=== PATIENT | male | born 1985 | race Caucasian/White ===

== ENCOUNTER 2017-01-04 15:10 | Emergency (ER) | payer OTHER ==
[~2017-01-04] VITALS: Ht 172.7 cm; Wt 71.7 kg
[2017-01-04 16:09] LABS: MCH 30.5 PG (29.0-34.0); MCHC 35.1 G/DL (30.0-36.0); MCV 86.9 FL (86-99); MEAN PLAT.VOLUME 9.8 uM^3 (9.0-12.4); PLATELET COUNT 243 K/uL (156-360); RBC DIS.WIDTH-CV 12.3 % (11.8-14.6); RBC DIS.WIDTH-SD 39.2 % (39-53); RED BLOOD COUNT 5.41 M/uL (4.00-5.50); WHITE BLOOD COUNT 18.6 K/uL (4.1-10.2)
[2017-01-04 16:20] LABS: CHLORIDE 99 mEq/L (99-109); POTASSIUM 4.2 mEq/L (3.7-5.4); SODIUM 138 mEq/L (136-147)
[2017-01-04 16:21] LABS: GLUCOSE 217 mg/dL (70-99)
[2017-01-04 16:23] LABS: ANION GAP 13 MEQ/L (2-14)
[2017-01-04 16:25] LABS: GFR ESTIMATE (CALCULATED) > 59 mL/min/
[2017-01-04 16:26] LABS: UREA NITROGEN (BUN) 18 mg/dL (9-23)
[2017-01-04 18:09] VITALS: BP 120/86
== END 2017-01-04 18:10 | disposition home or self-care (01) ==
LOC: EME 15:10
PROVIDERS: Emergency Medicine
DX: F11.10 Opioid abuse, uncomplicated (principal); T50.7X6A Underdosing of analeptics and opioid receptor antagonists, initial encounter; Z91.128 Patient's intentional underdosing of medication regimen for other reason; F17.200 Nicotine dependence, unspecified, uncomplicated
CPT/HCPCS: 71010; 80048; 85027; 93005; 99281; 99285; J2310; J7030

== ENCOUNTER 2017-08-12 18:55 | Emergency (ER) | payer OTHER ==
[~2017-08-12] VITALS: Ht 172.7 cm; Wt 69.9 kg
[2017-08-12 19:58] LABS: HEMATOCRIT 45.9 % (38.0-50.0); HEMOGLOBIN 15.9 G/DL (12.5-16.6); MCH 30.1 PG (29.0-34.0); MCHC 34.6 G/DL (30.0-36.0); MCV 86.8 FL (86-99); PLATELET COUNT 269 K/uL (156-360); RBC DIS.WIDTH-CV 11.6 % (11.8-14.6); RED BLOOD COUNT 5.29 M/uL (4.00-5.50); WHITE BLOOD COUNT 13.8 K/uL (4.1-10.2)
[2017-08-12 20:05] LABS: ALBUMIN 4.4 g/dL (3.2-4.8); CHLORIDE 96 mEq/L (99-109); POTASSIUM 3.6 mEq/L (3.7-5.4); SODIUM 136 mEq/L (136-147)
[2017-08-12 20:07] LABS: GLUCOSE 123 mg/dL (70-99); TOTAL PROTEIN 7.6 g/dL (6.4-8.3)
[2017-08-12 20:09] LABS: TOTAL BILIRUBIN 0.4 mg/dL (0.0-1.0)
[2017-08-12 20:10] LABS: SERUM ETHYL ALCOHOL < 10 mg/dL
[2017-08-12 20:11] LABS: ALKALINE PHOSPHATASE 74 IU/L (3-129); CREATININE 0.9 mg/dL (0.6-1.3); GFR ESTIMATE (CALCULATED) > 59 mL/min/ (58.99-99999)
[2017-08-12 20:12] LABS: AST (GOT) 38 IU/L (2-34); UREA NITROGEN (BUN) 14 mg/dL (9-23)
[2017-08-12 20:14] LABS: ALT (GPT) 41 IU/L (3-49)
[2017-08-12 21:45] LABS: APPEARANCE SL.HAZY ((CLEAR)); BILIRUBIN NEGATIVE; BLOOD NEGATIVE; COLOR YELLOW ((YELLOW)); GLUCOSE (STRIP) NEGATIVE; KETONES NEGATIVE; LEUKOCYTES NEGATIVE; NITRITE NEGATIVE; PROTEIN (STRIP) 30; SPECIFIC GRAVITY 1.025 (1.000-1.030); UROBILINOGEN 0.2 MG/DL (0.2-1.0)
[2017-08-12 21:52] LABS: BACTERIA NONE SEEN /HPF; EPITHELIAL CELLS RARE /HPF; MUCUS 1+ /LPF; WHITE BLOOD CELLS 0-5 /HPF (0-5)
[2017-08-12 21:53] LABS: AMPHETAMINE NEGATIVE (500 ng/mL); BARBITURATES NEGATIVE (200 ng/mL); BENZODIAZEPINES PRESUMPTIVE POSITIVE (150 ng/mL); BUPRENORPHINE NEGATIVE (10 ng/mL); COCAINE NEGATIVE (150 ng/mL); METHADONE NEGATIVE (200 ng/mL); METHAMPHETAMINE NEGATIVE (500 ng/mL); OPIATES (MORPHINE) NEGATIVE (100 ng/mL); OXYCODONE NEGATIVE (100 ng/mL); PHENCYCLIDINE NEGATIVE (25 ng/mL); PROPOXYPHENE NEGATIVE (300 ng/mL); THC CANNABINOIDS PRESUMPTIVE POSITIVE (50 ng/mL); TRICYCLIC ANTIDEPRESSANTS NEGATIVE (300 ng/mL)
[2017-08-12] MEDS ORDERED: NARCAN4 MG NS (21:58)
[2017-08-12] MEDS ORDERED: LEVAQUIN750 MG PO (22:06)
[2017-08-12 22:28] LABS: BENZODIAZEPINES, URINE SCREEN POSITIVE (200 ng/mL)
[2017-08-12 22:34] VITALS: BP 133/92
== END 2017-08-12 22:34 | disposition home or self-care (01) ==
LOC: EME 18:55
PROVIDERS: Emergency Medicine
DX: T40.1X1A Poisoning by heroin, accidental (unintentional), initial encounter (principal); T50.991A Poisoning by other drugs, medicaments and biological substances, accidental (unintentional), initial encounter; F19.10 Other psychoactive substance abuse, uncomplicated; J98.4 Other disorders of lung; F17.200 Nicotine dependence, unspecified, uncomplicated
CPT/HCPCS: 71046; 80053; 81003; 84999; 85027; 93005; 99281; 99284; G0480

== ENCOUNTER 2017-11-14 10:52 | Inpatient (IN) | payer OTHER ==
[~2017-11-14] VITALS: Ht 172.7 cm; Wt 67.0 kg
[2017-11-14] VITALS (11 sets, daily range): BP systolic 94–126; BP diastolic 67–85
[~2017-11-14 10:52] MED LIST: LEVAQUIN750 MG PO; NARCAN4 MG NS
[2017-11-14 11:03] LABS: CARBOXY HGB 5.4 % (0-5); PCO2 82 mm Hg (35-45); PO2 472 mm Hg (80-100)
[2017-11-14 11:04] LABS: COMMENTS - BLOOD GASES A+C+; DEVICE AMBU; FI02 100 %; SITE RR; pH < 6.92 (7.35-7.45)
[2017-11-14 11:10] LABS: PLATELET COUNT 288 K/uL (156-360)
[2017-11-14 11:12] LABS: INTER. NORMALIZED RATIO 1.2
[2017-11-14 11:15] LABS: HEMATOCRIT 45.7 % (38.0-50.0); HEMOGLOBIN 14.2 G/DL (12.5-16.6); MCH 31.2 PG (29.0-34.0); MCHC 31.1 G/DL (30.0-36.0); MCV 100.4 FL (86-99); RBC DIS.WIDTH-SD 48.2 % (39-53); RED BLOOD COUNT 4.55 M/uL (4.00-5.50); WHITE BLOOD COUNT 41.2 K/uL (4.1-10.2)
[2017-11-14 11:16] LABS: ALBUMIN 3.8 g/dL (3.2-4.8)
[2017-11-14 11:17] LABS: CHLORIDE 97 mEq/L (99-109); POTASSIUM 3.4 mEq/L (3.7-5.4); SODIUM 139 mEq/L (136-147)
[2017-11-14 11:19] LABS: GLUCOSE 335 mg/dL (70-99); TOTAL PROTEIN 6.7 g/dL (6.4-8.3)
[2017-11-14 11:21] LABS: TOTAL BILIRUBIN 0.9 mg/dL (0.0-1.0)
[2017-11-14 11:22] LABS: ALKALINE PHOSPHATASE 185 IU/L (3-129)
[2017-11-14 11:23] LABS: CREATININE 1.7 mg/dL (0.6-1.3); GFR ESTIMATE (CALCULATED) 50 mL/min/ (58.99-99999)
[2017-11-14 11:24] LABS: AST (GOT) 226 IU/L (2-34); UREA NITROGEN (BUN) 15 mg/dL (9-23)
[2017-11-14 11:25] LABS: APPEARANCE CLEAR ((CLEAR)); BILIRUBIN SMALL; BLOOD NEGATIVE; COLOR AMBER ((YELLOW)); GLUCOSE (STRIP) NEGATIVE; KETONES NEGATIVE; LEUKOCYTES NEGATIVE; NITRITE NEGATIVE; PROTEIN (STRIP) 30; SPECIFIC GRAVITY 1.027 (1.000-1.030); UCUL ADDED? NO
[2017-11-14 11:26] LABS: ACETAMINOPHEN (TYLENOL) < 10 mcg/mL (10-30); CREATINE KINASE 166 IU/L (1-294); TOTAL CK 166 IU/L (1-294)
[2017-11-14 11:27] LABS: ALT (GPT) 1023 IU/L (3-49)
[2017-11-14 11:28] LABS: TROP-I INTERPRETATION NEGATIVE; TROPONIN-I 0.01 ng/mL (0.0-0.30)
[2017-11-14 11:32] LABS: CK-MB 3.9 ng/mL (0.0-4.9); CKMB RELATIVE INDEX 2.3 (0.0-3.9)
[2017-11-14 11:34] LABS: AMPHETAMINE NEGATIVE (500 ng/mL); BARBITURATES NEGATIVE (200 ng/mL); BENZODIAZEPINES NEGATIVE (150 ng/mL); BUPRENORPHINE NEGATIVE (10 ng/mL); COCAINE PRESUMPTIVE POSITIVE (150 ng/mL); METHADONE NEGATIVE (200 ng/mL); METHAMPHETAMINE NEGATIVE (500 ng/mL); OPIATES (MORPHINE) NEGATIVE (100 ng/mL); OXYCODONE NEGATIVE (100 ng/mL); PHENCYCLIDINE NEGATIVE (25 ng/mL); PROPOXYPHENE NEGATIVE (300 ng/mL); THC CANNABINOIDS NEGATIVE (50 ng/mL); TRICYCLIC ANTIDEPRESSANTS NEGATIVE (300 ng/mL)
[2017-11-14 15:41] LABS: BASE EXCESS 6.8 mEq/L (-3 to +3); BICARBONATE 28.9 mEq/L (22-26); CARBOXY HGB 2.3 % (0-5); COMMENTS - BLOOD GASES A+C+; DEVICE VENT; FI02 50 %; METHEMOGLOBIN 1.5 % (0-1.5); PCO2 33 mm Hg (35-45); PO2 58 mm Hg (80-100); SITE RR; pH 7.55 (7.35-7.45)
[2017-11-14 15:42] LABS: MECHANICAL RATE 22 resp/min; MODE ACVC; PEEP 5 CM/H20; TIDAL VOLUME 550 ML; TOTAL RESP RATE 22 resp/min
[2017-11-14 18:08] LABS: INTER. NORMALIZED RATIO 1.2
[2017-11-14 18:26] LABS: TROP-I INTERPRETATION POSITIVE; TROPONIN-I 3.74 ng/mL (0.0-0.30)
[2017-11-14 18:29] LABS: CHLORIDE 103 MEQ/L (99-109); MAGNESIUM 2.3 mg/dl (1.3-2.7); PHOSPHORUS 1.3 mg/dL (2.5-4.9); POTASSIUM 3.3 MEQ/L (3.7-5.4); SODIUM 139 MEQ/L (136-147); UREA NITROGEN (BUN) 17 mg/dL (9-23)
[2017-11-14 18:31] LABS: BASOPHIL (%) 0.5 % (0-1); BASOPHIL COUNT 0.1 K/uL (0-0.1); EOSINOPHIL (%) 0.3 % (0-5); HEMATOCRIT 45.3 % (38.0-50.0); HEMOGLOBIN 15.7 G/DL (12.5-16.6); LYMPHOCYTE (%) 12.7 % (15-42); LYMPHOCYTE COUNT 1.5 K/uL (1.0-2.8); MCH 30.6 PG (29.0-34.0); MCHC 34.7 G/DL (30.0-36.0); MCV 88.3 FL (86-99); MONOCYTE (%) 3.7 % (3-12); MONOCYTE COUNT 0.4 K/uL (0-0.8); NEUTROPHIL (%) 81.8 % (45-76); NEUTROPHIL COUNT 9.4 K/uL (1.8-6.4); PLAT.SUFFICIENCY ADEQUATE; PLATELET COUNT 161 K/uL (156-360); RBC DIS.WIDTH-CV 12.8 % (11.8-14.6); RBC DIS.WIDTH-SD 41.8 % (39-53); RED BLOOD COUNT 5.13 M/uL (4.00-5.50); WHITE BLOOD COUNT 11.5 K/uL (4.1-10.2)
[2017-11-14 18:39] LABS: CREATININE 0.9 MG/DL (0.6-1.3); GFR ESTIMATE (CALCULATED) > 59 mL/min/ (58.99-99999); GLUCOSE 115 mg/dL (70-99)
[2017-11-14 21:53] LABS: BASE EXCESS 4.6 mEq/L (-3 to +3); BICARBONATE 29.2 mEq/L (22-26); CARBOXY HGB 1.8 % (0-5); METHEMOGLOBIN 1.3 % (0-1.5); PCO2 42 mm Hg (35-45); PO2 136 mm Hg (80-100); pH 7.45 (7.35-7.45)
[2017-11-14 21:54] LABS: COMMENTS - BLOOD GASES C+; DEVICE 980 VENT; FI02 40 %; MECHANICAL RATE 15 resp/min; MODE AC; PEEP 5 CM/H20; SITE LR; TIDAL VOLUME 500 ML; TOTAL RESP RATE 15 resp/min
[2017-11-15] VITALS (13 sets, daily range): BP systolic 85–153; BP diastolic 57–120
[2017-11-15 01:01] LABS: HEMATOCRIT 39.8 % (38.0-50.0); HEMOGLOBIN 13.8 G/DL (12.5-16.6); MCH 30.9 PG (29.0-34.0); MCHC 34.7 G/DL (30.0-36.0); MCV 89.2 FL (86-99); PLATELET COUNT 142 K/uL (156-360); RBC DIS.WIDTH-CV 12.9 % (11.8-14.6); RBC DIS.WIDTH-SD 42.4 % (39-53); RED BLOOD COUNT 4.46 M/uL (4.00-5.50); WHITE BLOOD COUNT 8.4 K/uL (4.1-10.2)
[2017-11-15 01:14] LABS: MAGNESIUM 1.6 mg/dL (1.3-2.7)
[2017-11-15 01:19] LABS: CREATININE 0.8 mg/dL (0.6-1.3); GFR ESTIMATE (CALCULATED) > 59 mL/min/ (58.99-99999); PHOSPHORUS 1.1 mg/dL (2.5-4.9)
[2017-11-15 01:20] LABS: UREA NITROGEN (BUN) 15 mg/dL (9-23)
[2017-11-15 01:21] LABS: TROP-I INTERPRETATION POSITIVE
[2017-11-15 01:23] LABS: CHLORIDE 113 mEq/L (99-109); GLUCOSE 82 mg/dL (70-99); INTER. NORMALIZED RATIO 1.5; POTASSIUM 2.6 mEq/L (3.7-5.4); SODIUM 156 mEq/L (136-147)
[2017-11-15 01:26] LABS: TROPONIN-I 3.11 ng/mL (0.0-0.30)
[2017-11-15 02:38] LABS: BASOPHIL (%) 0.2 % (0-1); EOSINOPHIL (%) 0.4 % (0-5); IMMATURE GRANULOCYTE (%) 1.1 % (0.0-0.7); LYMPHOCYTE (%) 18.7 % (15-42); LYMPHOCYTE COUNT 1.6 K/uL (1.0-2.8); MONOCYTE (%) 3.1 % (3-12); MONOCYTE COUNT 0.3 K/uL (0-0.8); NEUTROPHIL (%) 76.5 % (45-76); NEUTROPHIL COUNT 6.4 K/uL (1.8-6.4); PLAT.SUFFICIENCY ADEQUATE
[2017-11-15 03:44] LABS: BASE EXCESS 4.2 mEq/L (-3 to +3); BICARBONATE 28.4 mEq/L (22-26); CARBOXY HGB 1.4 % (0-5); METHEMOGLOBIN 1.5 % (0-1.5); PCO2 40 mm Hg (35-45); pH 7.46 (7.35-7.45)
[2017-11-15 03:45] LABS: COMMENTS - BLOOD GASES C+; DEVICE VENT; FI02 30 %; MECHANICAL RATE 15 resp/min; MODE ACVC; PEEP 5 CM/H20; PO2 103 mm Hg (80-100); SITE LR; TIDAL VOLUME 500 ML; TOTAL RESP RATE 15 resp/min
[2017-11-15 06:52] LABS: INTER. NORMALIZED RATIO 1.2
[2017-11-15 06:55] LABS: HEMATOCRIT 46.4 % (38.0-50.0); MCH 30.8 PG (29.0-34.0); MCHC 34.3 G/DL (30.0-36.0); MCV 89.9 FL (86-99); PLATELET COUNT 151 K/uL (156-360); RBC DIS.WIDTH-CV 12.9 % (11.8-14.6); RED BLOOD COUNT 5.16 M/uL (4.00-5.50); WHITE BLOOD COUNT 9.5 K/uL (4.1-10.2)
[2017-11-15 06:56] LABS: HEMOGLOBIN 15.9 G/DL (12.5-16.6)
[2017-11-15 07:40] LABS: ALBUMIN 3.7 G/DL (3.2-4.8); ALKALINE PHOSPHATASE 136 IU/L (3-129); AST (GOT) 341 IU/L (2-34); CREATININE 0.9 MG/DL (0.6-1.3); GFR ESTIMATE (CALCULATED) > 59 mL/min/ (58.99-99999); GLUCOSE 94 mg/dL (70-99); MAGNESIUM 2.2 mg/dl (1.3-2.7); SODIUM 150 MEQ/L (136-147); TOTAL BILIRUBIN 1.1 MG/DL (0.0-1.0); TOTAL PROTEIN 6.4 G/DL (6.4-8.3); TROPONIN-I 3.34 ng/mL (0.0-0.30); UREA NITROGEN (BUN) 15 mg/dL (9-23)
[2017-11-15 07:41] LABS: TROP-I INTERPRETATION POSITIVE
[2017-11-15 07:43] LABS: CHLORIDE 115 MEQ/L (99-109); POTASSIUM 4.7 MEQ/L (3.7-5.4)
[2017-11-15 07:44] LABS: PHOSPHORUS 1.9 mg/dL (2.5-4.9)
[2017-11-15 08:20] LABS: ABS NEUTROPHIL COUNT 8.7; ATYPICAL LYMPHOCYTE 1.8 %; BAND NEUTROPHILS 2.6 % (0-8.0); EOSINOPHIL ABS CT 0; LYMPHOCYTES 4.4 % (15.0-45.0); MONOCYTES 1.7 % (0-9.0); SEG.NEUTROPHILS 89.5 % (46.0-76.0); SMUDGE CELLS 8.8
[2017-11-15 08:23] LABS: ALT (GPT) 890 IU/L (3-49)
[2017-11-15 11:59] LABS: BASE EXCESS 1.6 mEq/L (-3 to +3); BICARBONATE 25.9 mEq/L (22-26); CARBOXY HGB 1.5 % (0-5); METHEMOGLOBIN 1.4 % (0-1.5); PCO2 39 mm Hg (35-45); pH 7.43 (7.35-7.45)
[2017-11-15 12:00] LABS: PO2 128 mm Hg (80-100); SITE RR
[2017-11-15 12:01] LABS: COMMENTS - BLOOD GASES NAC+; DEVICE VENT; FI02 30 %; MECHANICAL RATE 15 resp/min; MODE A/C; PEEP 5 CM/H20; TIDAL VOLUME 500 ML; TOTAL RESP RATE 15 resp/min
[2017-11-15 12:09] LABS: UR CREATININE CONCENTRATION 25.5 MG/DL
[2017-11-15 12:14] LABS: BASOPHIL (%) 0.2 % (0-1); EOSINOPHIL (%) 0.1 % (0-5); HEMATOCRIT 44.6 % (38.0-50.0); HEMOGLOBIN 15.1 G/DL (12.5-16.6); IMMATURE GRANULOCYTE (%) 0.6 % (0.0-0.7); LYMPHOCYTE (%) 14.3 % (15-42); LYMPHOCYTE COUNT 1.6 K/uL (1.0-2.8); MCH 30.4 PG (29.0-34.0); MCHC 33.9 G/DL (30.0-36.0); MCV 89.7 FL (86-99); MONOCYTE (%) 3.2 % (3-12); MONOCYTE COUNT 0.4 K/uL (0-0.8); NEUTROPHIL (%) 81.6 % (45-76); NEUTROPHIL COUNT 9.3 K/uL (1.8-6.4); PLATELET COUNT 196 K/uL (156-360); RBC DIS.WIDTH-CV 13.3 % (11.8-14.6); RBC DIS.WIDTH-SD 43.5 % (39-53); RED BLOOD COUNT 4.97 M/uL (4.00-5.50); WHITE BLOOD COUNT 11.4 K/uL (4.1-10.2)
[2017-11-15 12:36] LABS: CHLORIDE 122 MEQ/L (99-109); CREATININE 0.9 MG/DL (0.6-1.3); GFR ESTIMATE (CALCULATED) > 59 mL/min/ (58.99-99999); GLUCOSE 123 mg/dL (70-99); MAGNESIUM 2.4 mg/dl (1.3-2.7); POTASSIUM 4.5 MEQ/L (3.7-5.4); SODIUM 151 MEQ/L (136-147); UREA NITROGEN (BUN) 14 mg/dL (9-23)
[2017-11-15 12:39] LABS: PHOSPHORUS 1.2 mg/dL (2.5-4.9)
[2017-11-15 12:59] LABS: INTER. NORMALIZED RATIO 1.2
[2017-11-15 13:07] LABS: TROP-I INTERPRETATION POSITIVE; TROPONIN-I 2.15 ng/mL (0.0-0.30)
[2017-11-15 17:19] LABS: BASE EXCESS -0.3 mEq/L (-3 to +3); BICARBONATE 24.1 mEq/L (22-26); CARBOXY HGB 1.7 % (0-5); METHEMOGLOBIN 1.3 % (0-1.5); PCO2 38 mm Hg (35-45); PO2 83 mm Hg (80-100); pH 7.41 (7.35-7.45)
[2017-11-15 17:20] LABS: DEVICE VENT; FI02 30 %; MECHANICAL RATE 15 resp/min; MODE AC; PEEP 5 CM/H20; TIDAL VOLUME 500 ML; TOTAL RESP RATE 15 resp/min
[2017-11-15 17:48] LABS: BASOPHIL (%) 0.2 % (0-1); EOSINOPHIL (%) 0 % (0-5); HEMATOCRIT 43.1 % (38.0-50.0); HEMOGLOBIN 14.6 G/DL (12.5-16.6); IMMATURE GRANULOCYTE (%) 0.7 % (0.0-0.7); LYMPHOCYTE COUNT 1.4 K/uL (1.0-2.8); MCH 30.6 PG (29.0-34.0); MCHC 33.9 G/DL (30.0-36.0); MCV 90.4 FL (86-99); MONOCYTE (%) 3.2 % (3-12); MONOCYTE COUNT 0.3 K/uL (0-0.8); NEUTROPHIL (%) 79.9 % (45-76); NEUTROPHIL COUNT 6.9 K/uL (1.8-6.4); PLATELET COUNT 144 K/uL (156-360); RBC DIS.WIDTH-CV 13.3 % (11.8-14.6); RBC DIS.WIDTH-SD 44.3 % (39-53); RED BLOOD COUNT 4.77 M/uL (4.00-5.50); WHITE BLOOD COUNT 8.6 K/uL (4.1-10.2)
[2017-11-15 17:59] LABS: INTER. NORMALIZED RATIO 1.2
[2017-11-15 18:11] LABS: CHLORIDE 124 MEQ/L (99-109); CREATININE 0.8 MG/DL (0.6-1.3); GFR ESTIMATE (CALCULATED) > 59 mL/min/ (58.99-99999); GLUCOSE 127 mg/dL (70-99); MAGNESIUM 2.3 mg/dl (1.3-2.7); SODIUM 155 MEQ/L (136-147); UREA NITROGEN (BUN) 15 mg/dL (9-23)
[2017-11-15 18:38] LABS: TROP-I INTERPRETATION POSITIVE; TROPONIN-I 1.41 ng/mL (0.0-0.30)
[2017-11-15 18:40] LABS: PHOSPHORUS 1.8 mg/dL (2.5-4.9)
[2017-11-15 23:26] LABS: BASE EXCESS 2.6 mEq/L (-3 to +3); BICARBONATE 27.2 mEq/L (22-26); CARBOXY HGB 1.6 % (0-5); COMMENTS - BLOOD GASES C; METHEMOGLOBIN 1.4 % (0-1.5); PCO2 41 mm Hg (35-45); PO2 67 mm Hg (80-100); SITE RF ALINE; pH 7.43 (7.35-7.45)
[2017-11-15 23:27] LABS: DEVICE VENT; FI02 30 %; MECHANICAL RATE 15 resp/min; MODE AC; PEEP 5 CM/H20; TIDAL VOLUME 500 ML; TOTAL RESP RATE 15 resp/min
[2017-11-16] VITALS (12 sets, daily range): BP systolic 87–157; BP diastolic 46–113
[2017-11-16 00:54] LABS: BASOPHIL (%) 0.2 % (0-1); EOSINOPHIL (%) 0.2 % (0-5); HEMATOCRIT 42.3 % (38.0-50.0); HEMOGLOBIN 14.4 G/DL (12.5-16.6); IMMATURE GRANULOCYTE (%) 0.3 % (0.0-0.7); LYMPHOCYTE (%) 15.7 % (15-42); LYMPHOCYTE COUNT 1.6 K/uL (1.0-2.8); MONOCYTE (%) 2.9 % (3-12); MONOCYTE COUNT 0.3 K/uL (0-0.8); NEUTROPHIL (%) 80.7 % (45-76); NEUTROPHIL COUNT 8.2 K/uL (1.8-6.4); PLATELET COUNT 132 K/uL (156-360); RBC DIS.WIDTH-CV 13.7 % (11.8-14.6); RBC DIS.WIDTH-SD 45.8 % (39-53); RED BLOOD COUNT 4.65 M/uL (4.00-5.50); WHITE BLOOD COUNT 10.2 K/uL (4.1-10.2)
[2017-11-16 01:00] LABS: INTER. NORMALIZED RATIO 1.3
[2017-11-16 01:13] LABS: CHLORIDE 122 mEq/L (99-109); SODIUM 154 mEq/L (136-147)
[2017-11-16 01:16] LABS: TROP-I INTERPRETATION POSITIVE
[2017-11-16 01:18] LABS: GLUCOSE 84 mg/dL (70-99); MAGNESIUM 1.9 mg/dL (1.3-2.7); TROPONIN-I 1.18 ng/mL (0.0-0.30)
[2017-11-16 01:19] LABS: CREATININE 0.8 mg/dL (0.6-1.3); GFR ESTIMATE (CALCULATED) > 59 mL/min/ (58.99-99999)
[2017-11-16 01:20] LABS: PHOSPHORUS 2.9 mg/dL (2.5-4.9); UREA NITROGEN (BUN) 16 mg/dL (9-23)
[2017-11-16 05:36] LABS: BASE EXCESS 1.2 mEq/L (-3 to +3); CARBOXY HGB 1.6 % (0-5); METHEMOGLOBIN 1.7 % (0-1.5); PCO2 41 mm Hg (35-45); pH 7.41 (7.35-7.45)
[2017-11-16 05:37] LABS: COMMENTS - BLOOD GASES C; DEVICE VENT; FI02 50 %; MECHANICAL RATE 15 resp/min; MODE AC; PEEP 5 CM/H20; PO2 98 mm Hg (80-100); SITE RF ALINE; TIDAL VOLUME 500 ML; TOTAL RESP RATE 15 resp/min
[2017-11-16 06:21] LABS: BASOPHIL (%) 0.3 % (0-1); EOSINOPHIL (%) 0.5 % (0-5); EOSINOPHIL COUNT 0.1 K/uL (0-0.3); HEMATOCRIT 42.7 % (38.0-50.0); HEMOGLOBIN 14.1 G/DL (12.5-16.6); IMMATURE GRANULOCYTE (%) 0.3 % (0.0-0.7); LYMPHOCYTE (%) 14.9 % (15-42); LYMPHOCYTE COUNT 1.8 K/uL (1.0-2.8); MCH 30.5 PG (29.0-34.0); MCV 92.4 FL (86-99); MONOCYTE (%) 3.7 % (3-12); MONOCYTE COUNT 0.4 K/uL (0-0.8); NEUTROPHIL (%) 80.3 % (45-76); NEUTROPHIL COUNT 9.6 K/uL (1.8-6.4); PLATELET COUNT 146 K/uL (156-360); RBC DIS.WIDTH-CV 14.1 % (11.8-14.6); RBC DIS.WIDTH-SD 47.8 % (39-53); RED BLOOD COUNT 4.62 M/uL (4.00-5.50)
[2017-11-16 06:29] LABS: INTER. NORMALIZED RATIO 1.2
[2017-11-16 06:41] LABS: TROP-I INTERPRETATION POSITIVE; TROPONIN-I 1.24 ng/mL (0.0-0.30)
[2017-11-16 07:01] LABS: CHLORIDE 124 MEQ/L (99-109); GFR ESTIMATE (CALCULATED) > 59 mL/min/ (58.99-99999); GLUCOSE 86 mg/dL (70-99); POTASSIUM 3.7 MEQ/L (3.7-5.4); SODIUM 157 MEQ/L (136-147); UREA NITROGEN (BUN) 14 mg/dL (9-23)
[2017-11-16 07:08] LABS: MAGNESIUM 1.9 mg/dl (1.3-2.7); PHOSPHORUS 3.6 mg/dL (2.5-4.9)
[2017-11-16 09:30] LABS: BASE EXCESS -1.4 mEq/L (-3 to +3); BICARBONATE 30.6 mEq/L (22-26); CARBOXY HGB 1.5 % (0-5); METHEMOGLOBIN 1.4 % (0-1.5); PO2 95 mm Hg (80-100)
[2017-11-16 09:31] LABS: PCO2 92 mm Hg (35-45); SITE ALINE; pH 7.13 (7.35-7.45)
[2017-11-16 09:32] LABS: DEVICE VENT; FI02 50 %; MECHANICAL RATE 4 resp/min; MODE IMV; PEEP 5 CM/H20; TIDAL VOLUME 500 ML; TOTAL RESP RATE 4 resp/min
[2017-11-16 09:39] LABS: ALBUMIN 3.3 g/dL (3.2-4.8)
[2017-11-16 09:42] LABS: TOTAL PROTEIN 5.7 g/dL (6.4-8.3)
[2017-11-16 09:45] LABS: ALKALINE PHOSPHATASE 152 IU/L (3-129)
[2017-11-16 09:46] LABS: TOTAL BILIRUBIN 0.7 mg/dL (0.0-1.0)
[2017-11-16 09:47] LABS: AST (GOT) 243 IU/L (2-34); DIRECT BILIRUBIN 0.6 mg/dL (0.0-0.3)
[2017-11-16 09:48] LABS: ALT (GPT) 838 IU/L (3-49)
[2017-11-16 11:16] LABS: HIV-1/2 AB/AG COMBO Nonreactive
[2017-11-16 11:49] LABS: BASOPHIL (%) 0.2 % (0-1); EOSINOPHIL (%) 0.5 % (0-5); EOSINOPHIL COUNT 0.1 K/uL (0-0.3); HEMATOCRIT 41.1 % (38.0-50.0); IMMATURE GRANULOCYTE (%) 0.4 % (0.0-0.7); LYMPHOCYTE (%) 16.1 % (15-42); LYMPHOCYTE COUNT 1.6 K/uL (1.0-2.8); MCH 30.2 PG (29.0-34.0); MCHC 31.6 G/DL (30.0-36.0); MCV 95.6 FL (86-99); MONOCYTE (%) 3.3 % (3-12); MONOCYTE COUNT 0.3 K/uL (0-0.8); NEUTROPHIL (%) 79.5 % (45-76); NEUTROPHIL COUNT 8.1 K/uL (1.8-6.4); PLATELET COUNT 105 K/uL (156-360); RBC DIS.WIDTH-CV 14.5 % (11.8-14.6); RBC DIS.WIDTH-SD 50.5 % (39-53); WHITE BLOOD COUNT 10.2 K/uL (4.1-10.2)
[2017-11-16 11:55] LABS: INTER. NORMALIZED RATIO 1.3
[2017-11-16 12:13] LABS: CHLORIDE 125 MEQ/L (99-109); GFR ESTIMATE (CALCULATED) > 59 mL/min/ (58.99-99999); GLUCOSE 94 mg/dL (70-99); MAGNESIUM 1.9 mg/dl (1.3-2.7); SODIUM 158 MEQ/L (136-147); UREA NITROGEN (BUN) 12 mg/dL (9-23)
[2017-11-16 12:14] LABS: PHOSPHORUS 5.9 mg/dL (2.5-4.9)
[2017-11-16 12:27] LABS: TROP-I INTERPRETATION POSITIVE
[2017-11-16 16:01] LABS: BASE EXCESS 0.5 mEq/L (-3 to +3); CARBOXY HGB 1.3 % (0-5); METHEMOGLOBIN 1.6 % (0-1.5)
[2017-11-16 16:02] LABS: DEVICE VENT; FI02 55 %; MECHANICAL RATE 10 resp/min; MODE ACVC; PCO2 57 mm Hg (35-45); PEEP 5 CM/H20; PO2 130 mm Hg (80-100); SITE ALINE; TIDAL VOLUME 500 ML; TOTAL RESP RATE 10 resp/min
[2017-11-16 16:19] LABS: BASOPHIL (%) 0.2 % (0-1); EOSINOPHIL (%) 0.6 % (0-5); EOSINOPHIL COUNT 0.1 K/uL (0-0.3); HEMATOCRIT 40.5 % (38.0-50.0); HEMOGLOBIN 12.8 G/DL (12.5-16.6); IMMATURE GRANULOCYTE (%) 0.3 % (0.0-0.7); LYMPHOCYTE (%) 16.5 % (15-42); LYMPHOCYTE COUNT 1.4 K/uL (1.0-2.8); MCH 30.1 PG (29.0-34.0); MCHC 31.6 G/DL (30.0-36.0); MCV 95.3 FL (86-99); MONOCYTE COUNT 0.4 K/uL (0-0.8); NEUTROPHIL (%) 78.4 % (45-76); NEUTROPHIL COUNT 6.9 K/uL (1.8-6.4); PLATELET COUNT 102 K/uL (156-360); RBC DIS.WIDTH-CV 14.6 % (11.8-14.6); RBC DIS.WIDTH-SD 50.9 % (39-53); RED BLOOD COUNT 4.25 M/uL (4.00-5.50); WHITE BLOOD COUNT 8.8 K/uL (4.1-10.2)
[2017-11-16 16:24] LABS: INTER. NORMALIZED RATIO 1.3
[2017-11-16 16:26] LABS: PTT 30.5 SEC (25-37)
[2017-11-16 16:41] LABS: TROP-I INTERPRETATION POSITIVE; TROPONIN-I 0.94 ng/mL (0.0-0.30)
[2017-11-16 17:42] LABS: CK-MB 8.6 ng/mL (0.0-4.9)
[2017-11-16 17:51] LABS: ALBUMIN 2.8 G/DL (3.2-4.8); ALKALINE PHOSPHATASE 111 IU/L (3-129); ALT (GPT) 531 IU/L (3-49); AMYLASE 151 IU/L (1-118); AST (GOT) 134 IU/L (2-34); CKMB RELATIVE INDEX 4.4 (0.0-3.9); CREATINE KINASE 195 IU/L (1-294); DIRECT BILIRUBIN 0.4 mg/dL (0.0-0.3); LIPASE 11 U/L (1.0-51.0); MAGNESIUM 1.7 mg/dl (1.3-2.7); PHOSPHORUS 4.2 mg/dL (2.5-4.9); TOTAL BILIRUBIN 0.8 MG/DL (0.0-1.0); TOTAL CK 195 IU/L (1-294); TOTAL PROTEIN 4.9 G/DL (6.4-8.3)
[2017-11-16 18:54] LABS: BASOPHIL (%) 0.1 % (0-1); EOSINOPHIL (%) 0.3 % (0-5); HEMATOCRIT 38.7 % (38.0-50.0); HEMOGLOBIN 12.4 G/DL (12.5-16.6); IMMATURE GRANULOCYTE (%) 0.3 % (0.0-0.7); LYMPHOCYTE (%) 19.1 % (15-42); LYMPHOCYTE COUNT 1.3 K/uL (1.0-2.8); MCH 30.1 PG (29.0-34.0); MCV 93.9 FL (86-99); MONOCYTE (%) 4.3 % (3-12); MONOCYTE COUNT 0.3 K/uL (0-0.8); NEUTROPHIL (%) 75.9 % (45-76); NEUTROPHIL COUNT 5.2 K/uL (1.8-6.4); PLATELET COUNT 117 K/uL (156-360); RBC DIS.WIDTH-CV 14.4 % (11.8-14.6); RBC DIS.WIDTH-SD 50.8 % (39-53); RED BLOOD COUNT 4.12 M/uL (4.00-5.50); WHITE BLOOD COUNT 6.8 K/uL (4.1-10.2)
[2017-11-16 19:01] LABS: INTER. NORMALIZED RATIO 1.4
[2017-11-16 19:19] LABS: TROP-I INTERPRETATION POSITIVE; TROPONIN-I 0.84 ng/mL (0.0-0.30)
[2017-11-16 19:20] LABS: CHLORIDE 119 MEQ/L (99-109); GFR ESTIMATE (CALCULATED) > 59 mL/min/ (58.99-99999); GLUCOSE 99 mg/dL (70-99); MAGNESIUM 1.7 mg/dl (1.3-2.7); PHOSPHORUS 3.8 mg/dL (2.5-4.9); POTASSIUM 3.6 MEQ/L (3.7-5.4); SODIUM 150 MEQ/L (136-147); UREA NITROGEN (BUN) 13 mg/dL (9-23)
[2017-11-16 20:59] LABS: BASE EXCESS -0.3 mEq/L (-3 to +3); CARBOXY HGB 1.4 % (0-5); METHEMOGLOBIN 1.7 % (0-1.5)
[2017-11-16 21:01] LABS: BICARBONATE 22.6 mEq/L (22-26); DEVICE VENT; PCO2 31 mm Hg (35-45); PO2 159 mm Hg (80-100); SITE ALINE; pH 7.47 (7.35-7.45)
[2017-11-16 21:02] LABS: FI02 40 %; MECHANICAL RATE 10 resp/min; MODE BILEVEL; TOTAL RESP RATE 10 resp/min
[2017-11-17 00:17] LABS: BASE EXCESS 1.2 mEq/L (-3 to +3); CARBOXY HGB 1.5 % (0-5); METHEMOGLOBIN 1.6 % (0-1.5); pH 7.45 (7.35-7.45)
[2017-11-17 00:18] LABS: DEVICE VENT; FI02 40 %; MECHANICAL RATE 9 resp/min; MODE BILEVEL; PCO2 36 mm Hg (35-45); PO2 195 mm Hg (80-100); PRES. SUPPORT 0 CM/H2O; SITE ALINE; TOTAL RESP RATE 9 resp/min
[2017-11-17 00:22] LABS: BASOPHIL (%) 0.1 % (0-1); EOSINOPHIL (%) 0 % (0-5); HEMATOCRIT 40.1 % (38.0-50.0); HEMOGLOBIN 13.2 G/DL (12.5-16.6); IMMATURE GRANULOCYTE (%) 0.3 % (0.0-0.7); LYMPHOCYTE (%) 7.1 % (15-42); LYMPHOCYTE COUNT 0.5 K/uL (1.0-2.8); MCH 30.6 PG (29.0-34.0); MCHC 32.9 G/DL (30.0-36.0); MONOCYTE COUNT 0.1 K/uL (0-0.8); NEUTROPHIL (%) 90.5 % (45-76); NEUTROPHIL COUNT 6.5 K/uL (1.8-6.4); PLATELET COUNT 115 K/uL (156-360); RBC DIS.WIDTH-CV 14.2 % (11.8-14.6); RBC DIS.WIDTH-SD 49.1 % (39-53); RED BLOOD COUNT 4.31 M/uL (4.00-5.50); WHITE BLOOD COUNT 7.1 K/uL (4.1-10.2)
[2017-11-17 00:35] LABS: ALBUMIN 3.7 g/dL (3.2-4.8); CHLORIDE 113 mEq/L (99-109); SODIUM 150 mEq/L (136-147)
[2017-11-17 00:41] LABS: ALKALINE PHOSPHATASE 138 IU/L (3-129); CREATININE 1.2 mg/dL (0.6-1.3); GFR ESTIMATE (CALCULATED) > 59 mL/min/ (58.99-99999)
[2017-11-17 00:42] LABS: UREA NITROGEN (BUN) 14 mg/dL (9-23)
[2017-11-17 00:43] LABS: TROP-I INTERPRETATION INDETERMINATE; TROPONIN-I 0.56 ng/mL (0.0-0.30)
[2017-11-17 00:43] LABS: DIRECT BILIRUBIN 1.2 mg/dL (0.0-0.3)
[2017-11-17 00:44] LABS: ALT (GPT) 619 IU/L (3-49)
[2017-11-17 00:45] LABS: CREATINE KINASE 159 IU/L (1-294); LIPASE 4 U/L (1.0-51.0); TOTAL CK 159 IU/L (1-294)
[2017-11-17 00:46] LABS: INTER. NORMALIZED RATIO 1.7
[2017-11-17 00:51] LABS: CK-MB 5.2 ng/mL (0.0-4.9); CKMB RELATIVE INDEX 3.3 (0.0-3.9)
[2017-11-17 01:00] LABS: AST (GOT) 130 IU/L (2-34); GLUCOSE 185 mg/dL (70-99); MAGNESIUM 1.5 mg/dL (1.3-2.7); PHOSPHORUS 4.2 mg/dL (2.5-4.9); TOTAL BILIRUBIN 1.7 mg/dL (0.0-1.0)
[2017-11-17 01:01] LABS: AMYLASE 422 IU/L (1-118)
[2017-11-17 01:14] LABS: PTT 32.4 SEC (25-37)
[2017-11-17 03:39] LABS: GAMMA-GT 64 IU/L (4-73)
[2017-11-17 05:34] LABS: BASE EXCESS -0.8 mEq/L (-3 to +3); BICARBONATE 24.3 mEq/L (22-26); CARBOXY HGB 1.5 % (0-5); METHEMOGLOBIN 1.7 % (0-1.5); pH 7.38 (7.35-7.45)
[2017-11-17 05:35] LABS: DEVICE VENT; FI02 40 %; MECHANICAL RATE 9 resp/min; MODE BILEVEL; PCO2 41 mm Hg (35-45); PO2 143 mm Hg (80-100); PRES. SUPPORT 0 CM/H2O; SITE ALINE; TOTAL RESP RATE 9 resp/min
[2017-11-17 05:56] LABS: INTER. NORMALIZED RATIO 1.4
[2017-11-17 05:59] LABS: PTT 32.5 SEC (25-37)
[2017-11-17 06:08] LABS: BASOPHIL (%) 0.1 % (0-1); EOSINOPHIL (%) 0 % (0-5); HEMATOCRIT 40.5 % (38.0-50.0); HEMOGLOBIN 13.2 G/DL (12.5-16.6); IMMATURE GRANULOCYTE (%) 0.3 % (0.0-0.7); LYMPHOCYTE (%) 7.3 % (15-42); LYMPHOCYTE COUNT 0.9 K/uL (1.0-2.8); MCH 30.3 PG (29.0-34.0); MCHC 32.6 G/DL (30.0-36.0); MCV 93.1 FL (86-99); MONOCYTE (%) 2.6 % (3-12); MONOCYTE COUNT 0.3 K/uL (0-0.8); NEUTROPHIL (%) 89.7 % (45-76); NEUTROPHIL COUNT 10.5 K/uL (1.8-6.4); RBC DIS.WIDTH-CV 14.1 % (11.8-14.6); RBC DIS.WIDTH-SD 48.5 % (39-53); RED BLOOD COUNT 4.35 M/uL (4.00-5.50); WHITE BLOOD COUNT 11.7 K/uL (4.1-10.2)
[2017-11-17 06:23] LABS: TROP-I INTERPRETATION INDETERMINATE; TROPONIN-I 0.37 ng/mL (0.0-0.30)
[2017-11-17 06:27] LABS: PLATELET COUNT 163 K/uL (156-360)
[2017-11-17 06:28] LABS: APPEARANCE CLEAR ((CLEAR)); BILIRUBIN NEGATIVE; BLOOD SMALL; COLOR YELLOW ((YELLOW)); GLUCOSE (STRIP) 50; KETONES NEGATIVE; LEUKOCYTES NEGATIVE; NITRITE NEGATIVE; PROTEIN (STRIP) NEGATIVE; UROBILINOGEN 0.2 MG/DL (0.2-1.0)
[2017-11-17 06:32] LABS: BACTERIA RARE /HPF; EPITHELIAL CELLS NONE SEEN /HPF; MUCUS TRACE /LPF; RED BLOOD CELLS 0-5 /HPF (0-5); WHITE BLOOD CELLS 0-5 /HPF (0-5)
[2017-11-17 07:30] LABS: CK-MB 4.3 ng/mL (0.0-4.9)
[2017-11-17 08:11] LABS: ALBUMIN 3.8 G/DL (3.2-4.8); ALKALINE PHOSPHATASE 115 IU/L (3-129); ALT (GPT) 465 IU/L (3-49); AST (GOT) 89 IU/L (2-34); CHLORIDE 108 MEQ/L (99-109); CKMB RELATIVE INDEX 3.5 (0.0-3.9); CREATINE KINASE 123 IU/L (1-294); CREATININE 1.2 MG/DL (0.6-1.3); DIRECT BILIRUBIN 0.7 mg/dL (0.0-0.3); GAMMA-GT 61 IU/L (4-73); GFR ESTIMATE (CALCULATED) > 59 mL/min/ (58.99-99999); GLUCOSE 236 mg/dL (70-99); PHOSPHORUS 3.7 mg/dL (2.5-4.9); SODIUM 143 MEQ/L (136-147); TOTAL CK 123 IU/L (1-294); UREA NITROGEN (BUN) 14 mg/dL (9-23)
[2017-11-17 08:15] LABS: AMYLASE 290 IU/L (1-118); MAGNESIUM 3.4 mg/dl (1.3-2.7); POTASSIUM 3.7 MEQ/L (3.7-5.4); TOTAL BILIRUBIN 1.4 MG/DL (0.0-1.0); TOTAL PROTEIN 6.7 G/DL (6.4-8.3)
[2017-11-17 08:34] LABS: LIPASE < 3.0 U/L (1.0-51.0)
[2017-11-17 10:41] LABS: BASE EXCESS -0.2 mEq/L (-3 to +3); BICARBONATE 24.8 mEq/L (22-26); CARBOXY HGB 1.3 % (0-5); COMMENTS - BLOOD GASES NAC+; DEVICE PB 980; FI02 100 %; INSPIRATION TIME 0.65 seconds; MECHANICAL RATE 9 resp/min; METHEMOGLOBIN 1.6 % (0-1.5); MODE BI LEVEL PC; PCO2 41 mm Hg (35-45); PEEP 0 CM/H20; PO2 555 mm Hg (80-100); PRESSURE CONTROL VENTILATION 23 CM H20; SITE ALINE; TOTAL RESP RATE 9 resp/min; pH 7.39 (7.35-7.45)
[2017-11-17 10:42] LABS: PRES. SUPPORT 0 CM/H2O
[2017-11-17 10:48] LABS: HEMOGLOBIN A1c (GLYCOHEMOGLOB) 4.7 % (Below 5.7)
[2017-11-17 11:32] LABS: BASE EXCESS -0.3 mEq/L (-3 to +3); BICARBONATE 25.9 mEq/L (22-26); CARBOXY HGB 1.1 % (0-5); METHEMOGLOBIN 1.7 % (0-1.5); pH 7.34 (7.35-7.45)
[2017-11-17 11:33] LABS: PCO2 48 mm Hg (35-45); PO2 519 mm Hg (80-100); SITE A-LINE
[2017-11-17 11:34] LABS: DEVICE VENT; FI02 100 %; MECHANICAL RATE 10 resp/min; MODE VC+; PEEP 5 CM/H20; TIDAL VOLUME 600 ML; TOTAL RESP RATE 10 resp/min
[2017-11-17 12:00] VITALS: BP 139/78
[2017-11-17 12:14] LABS: BASOPHIL (%) 0 % (0-1); EOSINOPHIL (%) 0.1 % (0-5); HEMATOCRIT 36.4 % (38.0-50.0); HEMOGLOBIN 12.1 G/DL (12.5-16.6); IMMATURE GRANULOCYTE (%) 0.5 % (0.0-0.7); LYMPHOCYTE (%) 5.5 % (15-42); LYMPHOCYTE COUNT 0.5 K/uL (1.0-2.8); MCH 30.6 PG (29.0-34.0); MCHC 33.2 G/DL (30.0-36.0); MCV 92.2 FL (86-99); MONOCYTE (%) 1.3 % (3-12); MONOCYTE COUNT 0.1 K/uL (0-0.8); NEUTROPHIL (%) 92.6 % (45-76); NEUTROPHIL COUNT 7.8 K/uL (1.8-6.4); NRBC (%) 0.2 /100 WBC (0-0); PLATELET COUNT 124 K/uL (156-360); RBC DIS.WIDTH-CV 13.9 % (11.8-14.6); RBC DIS.WIDTH-SD 47.4 % (39-53); RED BLOOD COUNT 3.95 M/uL (4.00-5.50); WHITE BLOOD COUNT 8.4 K/uL (4.1-10.2)
[2017-11-17 12:34] LABS: TROP-I INTERPRETATION INDETERMINATE; TROPONIN-I 0.31 ng/mL (0.0-0.30)
[2017-11-17 12:42] LABS: INTER. NORMALIZED RATIO 1.3
[2017-11-17 12:44] LABS: PTT 33.6 SEC (25-37)
[2017-11-17 14:47] LABS: ALKALINE PHOSPHATASE 111 IU/L (3-129); ALT (GPT) 380 IU/L (3-49); AMYLASE 222 IU/L (1-118); AST (GOT) 61 IU/L (2-34); CHLORIDE 106 MEQ/L (99-109); CREATINE KINASE 102 IU/L (1-294); CREATININE 1.1 MG/DL (0.6-1.3); GAMMA-GT 52 IU/L (4-73); GFR ESTIMATE (CALCULATED) > 59 mL/min/ (58.99-99999); GLUCOSE 213 mg/dL (70-99); PHOSPHORUS 2.5 mg/dL (2.5-4.9); POTASSIUM 3.5 MEQ/L (3.7-5.4); SODIUM 141 MEQ/L (136-147); TOTAL BILIRUBIN 1.2 MG/DL (0.0-1.0); TOTAL CK 102 IU/L (1-294); TOTAL PROTEIN 6.8 G/DL (6.4-8.3); UREA NITROGEN (BUN) 14 mg/dL (9-23)
[2017-11-17 14:48] LABS: MAGNESIUM 2.5 mg/dl (1.3-2.7)
[2017-11-17 15:01] LABS: APPEARANCE CLEAR ((CLEAR)); BILIRUBIN NEGATIVE; BLOOD NEGATIVE; COLOR YELLOW ((YELLOW)); GLUCOSE (STRIP) NEGATIVE; KETONES NEGATIVE; LEUKOCYTES NEGATIVE; NITRITE NEGATIVE; PROTEIN (STRIP) NEGATIVE; SPECIFIC GRAVITY 1.008 (1.000-1.030); UROBILINOGEN 0.2 MG/DL (0.2-1.0)
[2017-11-17 15:02] LABS: DIRECT BILIRUBIN 0.6 mg/dL (0.0-0.3)
[2017-11-17 15:35] LABS: CK-MB 3.7 ng/mL (0.0-4.9); CKMB RELATIVE INDEX 3.6 (0.0-3.9)
[2017-11-17 15:37] LABS: LIPASE < 3.0 U/L (1.0-51.0)
[2017-11-17 16:00] VITALS: BP 126/77
[2017-11-17 20:12] LABS: BASOPHIL (%) 0 % (0-1); EOSINOPHIL (%) 0 % (0-5); HEMATOCRIT 31.6 % (38.0-50.0); HEMOGLOBIN 10.6 G/DL (12.5-16.6); IMMATURE GRANULOCYTE (%) 0.4 % (0.0-0.7); LYMPHOCYTE (%) 6.2 % (15-42); LYMPHOCYTE COUNT 0.4 K/uL (1.0-2.8); MCH 29.9 PG (29.0-34.0); MCHC 33.5 G/DL (30.0-36.0); MCV 89.3 FL (86-99); MONOCYTE COUNT 0.2 K/uL (0-0.8); NEUTROPHIL (%) 90.4 % (45-76); NEUTROPHIL COUNT 6.1 K/uL (1.8-6.4); PLATELET COUNT 123 K/uL (156-360); RBC DIS.WIDTH-CV 13.2 % (11.8-14.6); RBC DIS.WIDTH-SD 44.1 % (39-53); RED BLOOD COUNT 3.54 M/uL (4.00-5.50); WHITE BLOOD COUNT 6.8 K/uL (4.1-10.2)
[2017-11-17 20:36] LABS: TROP-I INTERPRETATION NEGATIVE; TROPONIN-I 0.26 ng/mL (0.0-0.30)
[2017-11-17 21:16] LABS: ALBUMIN 3.9 G/DL (3.2-4.8); ALKALINE PHOSPHATASE 90 IU/L (3-129); ALT (GPT) 294 IU/L (3-49); AMYLASE 151 IU/L (1-118); AST (GOT) 40 IU/L (2-34); CHLORIDE 103 MEQ/L (99-109); CREATINE KINASE 72 IU/L (1-294); CREATININE 1.1 MG/DL (0.6-1.3); DIRECT BILIRUBIN 0.7 mg/dL (0.0-0.3); GAMMA-GT 44 IU/L (4-73); GFR ESTIMATE (CALCULATED) > 59 mL/min/ (58.99-99999); GLUCOSE 204 mg/dL (70-99); LIPASE < 3.0 U/L (1.0-51.0); PHOSPHORUS 2.5 mg/dL (2.5-4.9); SODIUM 140 MEQ/L (136-147); TOTAL CK 72 IU/L (1-294); UREA NITROGEN (BUN) 17 mg/dL (9-23)
[2017-11-17 21:27] LABS: TOTAL BILIRUBIN 1.5 MG/DL (0.0-1.0)
[2017-11-17 21:34] LABS: CK-MB 2.3 ng/mL (0.0-4.9); CKMB RELATIVE INDEX 3.2 (0.0-3.9)
[2017-11-18 00:49] LABS: BASOPHIL (%) 0.1 % (0-1); EOSINOPHIL (%) 0 % (0-5); HEMATOCRIT 31.6 % (38.0-50.0); HEMOGLOBIN 10.8 G/DL (12.5-16.6); IMMATURE GRANULOCYTE (%) 0.7 % (0.0-0.7); LYMPHOCYTE (%) 7.7 % (15-42); LYMPHOCYTE COUNT 0.6 K/uL (1.0-2.8); MCH 30.4 PG (29.0-34.0); MCHC 34.2 G/DL (30.0-36.0); MONOCYTE (%) 2.9 % (3-12); MONOCYTE COUNT 0.2 K/uL (0-0.8); NEUTROPHIL (%) 88.6 % (45-76); NEUTROPHIL COUNT 6.6 K/uL (1.8-6.4); PLATELET COUNT 136 K/uL (156-360); RBC DIS.WIDTH-CV 13.3 % (11.8-14.6); RBC DIS.WIDTH-SD 44.2 % (39-53); RED BLOOD COUNT 3.55 M/uL (4.00-5.50); WHITE BLOOD COUNT 7.5 K/uL (4.1-10.2)
[2017-11-18 00:53] LABS: INTER. NORMALIZED RATIO 1.3
[2017-11-18 00:56] LABS: PTT 31.4 SEC (25-37)
[2017-11-18 01:06] LABS: ALBUMIN 4.3 g/dL (3.2-4.8); CHLORIDE 106 mEq/L (99-109); SODIUM 145 mEq/L (136-147)
[2017-11-18 01:07] LABS: MAGNESIUM 2.3 mg/dL (1.3-2.7)
[2017-11-18 01:09] LABS: GLUCOSE 120 mg/dL (70-99); TOTAL PROTEIN 6.7 g/dL (6.4-8.3)
[2017-11-18 01:10] LABS: TROP-I INTERPRETATION NEGATIVE; TROPONIN-I 0.23 ng/mL (0.0-0.30)
[2017-11-18 01:12] LABS: ALKALINE PHOSPHATASE 106 IU/L (3-129); CREATININE 1.4 mg/dL (0.6-1.3); GFR ESTIMATE (CALCULATED) > 59 mL/min/ (58.99-99999)
[2017-11-18 01:13] LABS: PHOSPHORUS 2.5 mg/dL (2.5-4.9); TOTAL BILIRUBIN 1.3 mg/dL (0.0-1.0); UREA NITROGEN (BUN) 20 mg/dL (9-23)
[2017-11-18 01:14] LABS: DIRECT BILIRUBIN 0.9 mg/dL (0.0-0.3)
[2017-11-18 01:15] LABS: ALT (GPT) 337 IU/L (3-49); CREATINE KINASE 66 IU/L (1-294); TOTAL CK 66 IU/L (1-294)
[2017-11-18 01:18] LABS: AST (GOT) 37 IU/L (2-34)
[2017-11-18 01:22] LABS: CK-MB 1.4 ng/mL (0.0-4.9); CKMB RELATIVE INDEX 2.1 (0.0-3.9)
[2017-11-18 03:06] LABS: GAMMA-GT 43 IU/L (4-73)
[2017-11-18 05:10] LABS: BASE EXCESS 4.5 mEq/L (-3 to +3); BICARBONATE 28.3 mEq/L (22-26); CARBOXY HGB 0.9 % (0-5); COMMENTS - BLOOD GASES C; DEVICE VENT; FI02 40 %; INSPIRATION TIME 0.65 seconds; MECHANICAL RATE 9 resp/min; METHEMOGLOBIN 1.5 % (0-1.5); PCO2 38 mm Hg (35-45); PO2 135 mm Hg (80-100); SITE RF ALINE; TOTAL RESP RATE 9 resp/min; pH 7.48 (7.35-7.45)
[2017-11-18 05:11] LABS: MODE BILEVEL 23/0
[2017-11-18 06:03] LABS: BASOPHIL (%) 0.1 % (0-1); EOSINOPHIL (%) 0 % (0-5); HEMATOCRIT 32.2 % (38.0-50.0); HEMOGLOBIN 10.8 G/DL (12.5-16.6); IMMATURE GRANULOCYTE (%) 0.8 % (0.0-0.7); LYMPHOCYTE (%) 5.8 % (15-42); LYMPHOCYTE COUNT 0.5 K/uL (1.0-2.8); MCH 30.2 PG (29.0-34.0); MCHC 33.5 G/DL (30.0-36.0); MCV 89.9 FL (86-99); MONOCYTE (%) 2.3 % (3-12); MONOCYTE COUNT 0.2 K/uL (0-0.8); PLATELET COUNT 132 K/uL (156-360); RBC DIS.WIDTH-CV 13.7 % (11.8-14.6); RBC DIS.WIDTH-SD 45.2 % (39-53); RED BLOOD COUNT 3.58 M/uL (4.00-5.50); WHITE BLOOD COUNT 8.7 K/uL (4.1-10.2)
[2017-11-18 06:07] LABS: TROP-I INTERPRETATION NEGATIVE; TROPONIN-I 0.24 ng/mL (0.0-0.30)
[2017-11-18 06:20] LABS: ALBUMIN 4.3 G/DL (3.2-4.8); ALKALINE PHOSPHATASE 97 IU/L (3-129); ALT (GPT) 277 IU/L (3-49); AST (GOT) 30 IU/L (2-34); CHLORIDE 105 MEQ/L (99-109); CREATINE KINASE 46 IU/L (1-294); CREATININE 1.4 MG/DL (0.6-1.3); DIRECT BILIRUBIN 0.6 mg/dL (0.0-0.3); GAMMA-GT 44 IU/L (4-73); GFR ESTIMATE (CALCULATED) > 59 mL/min/ (58.99-99999); GLUCOSE 167 mg/dL (70-99); MAGNESIUM 2.1 mg/dl (1.3-2.7); POTASSIUM 3.7 MEQ/L (3.7-5.4); SODIUM 144 MEQ/L (136-147); TOTAL BILIRUBIN 1.2 MG/DL (0.0-1.0); TOTAL CK 46 IU/L (1-294); UREA NITROGEN (BUN) 21 mg/dL (9-23)
[2017-11-18 06:43] LABS: INTER. NORMALIZED RATIO 1.3
[2017-11-18 06:45] LABS: PTT 30.2 SEC (25-37)
[2017-11-18 06:58] LABS: CK-MB 1.2 ng/mL (0.0-4.9); CKMB RELATIVE INDEX 2.6 (0.0-3.9)
== END 2017-11-18 10:58 | DRG 917 ==
LOC: EME 10:52 → 4WEST 11:24 → EDOF 11:24 → ENRESERV 11:27 → EDOF 11:28 → ENRESERV 11:38 → 4WEST 13:12
PROVIDERS: Emergency Medicine; Internal Medicine Critical Care Medicine
PROC: 0B21XEZ Change Endotracheal Airway in Trachea, External Approach (ICD-10-PCS; principal; 2017-11-14)
PROC: 5A1945Z Respiratory Ventilation, 24-96 Consecutive Hours (ICD-10-PCS; principal; 2017-11-14)
PROC: 05HM33Z Insertion of Infusion Device into Right Internal Jugular Vein, Percutaneous Approach (ICD-10-PCS; 2017-11-15)
PROC: 04HY32Z Insertion of Monitoring Device into Lower Artery, Percutaneous Approach (ICD-10-PCS; 2017-11-15)
PROC: B2111ZZ Fluoroscopy of Multiple Coronary Arteries using Low Osmolar Contrast (ICD-10-PCS; 2017-11-17)
PROC: 4A023N8 Measurement of Cardiac Sampling and Pressure, Bilateral, Percutaneous Approach (ICD-10-PCS; 2017-11-17)
DX: T40.5X1A Poisoning by cocaine, accidental (unintentional), initial encounter (principal); T40.1X1A Poisoning by heroin, accidental (unintentional), initial encounter; I46.9 Cardiac arrest, cause unspecified; I60.9 Nontraumatic subarachnoid hemorrhage, unspecified; R40.20 Unspecified coma; G93.6 Cerebral edema; G93.1 Anoxic brain damage, not elsewhere classified; E87.0 Hyperosmolality and hypernatremia; F14.129 Cocaine abuse with intoxication, unspecified; R68.0 Hypothermia, not associated with low environmental temperature; B19.10 Unspecified viral hepatitis B without hepatic coma; F11.10 Opioid abuse, uncomplicated; F17.210 Nicotine dependence, cigarettes, uncomplicated; Z52.9 Donor of unspecified organ or tissue
CPT/HCPCS: 36600; 70450; 70496; 71045; 71250; 74176; 78610; 80048; 80048 91; 80053; 80076; 81003; 82150; 82248; 82330; 82436; 82550; 82550 91; 82553; 82570; 82803; 82948; 82977; 83036; 83605; 83690; 83735; 83880; 83930; 83935; 84100; 84133; 84300; 84484; 84999; 85025; 85025 91; 85027; 85610; 85730; 86850; 86900; 86901; 87040; 87070; 87077; 87086; 87147; 87186; 87205; 87389; 87641; 93005; 93306; 94002; 94003; 94760; 99281; 99285; A9539; C1751; C1769; C1874; C1887; C1894; G0480; J0295; J0610; J0690; J1250; J1644; J1650; J1815; J1940; J2310; J2930; J3430; J3475; J3480; J7030; J7040; J7050; J7070; P9047